=== PATIENT | male | born 1990 | race Caucasian/White ===

== ENCOUNTER 2016-10-29 22:15 | Emergency (ER) | payer OTHER, BC ==
[2016-10-29 22:19] VITALS: BP 143/80; PULSE 69; RESP 14; TEMP 97.9; O2SAT 93
[2016-10-29] MEDS ORDERED: HYDROCOD/APAP 5/325 PREPACK#6 BTL TAKEHOME ONE (22:48)
--- NOTE | 2016-10-29 22:48 | EDPHY ---
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 Non circumferential. Occurred shortly prior to arrival. No paresthesia or sensory or motor deficit. PHYSICAL EXAM (Prior to examination, patient consented to physical exam, hands were washed and my usual and customary physical exam procedures followed) 1) GENERAL: Well-developed, well-nourished, alert and oriented. Appears to be in no acute distress. 2) HEAD: Normocephalic 3) HEENT: Pupils equal, round, reactive to light bilaterally. 4) LUNGS: Breathing comfortably. 5) MUSCULOSKELETAL: Soft compartments. Normal coloration. 6) SKIN: On the volar aspect the patient's right wrist he has an area of superficial thickness burn with no blistering. Full sensation. Non circumferential. 7) VASCULAR: pulses and cap refill present are brisk 8) NEUROLOGIC: Radial, ulnar, median nerve function intact with no deficits appreciated on exam Procedure: Splint For comfort measure a volar Velcro splint was applied by ER military technician. After application of the splint I returned and re-examined the patient. The splint was adequately immobilizing the joint and distal to the splint the patient's circulation and sensation were intact. Patient shows no signs of compartment syndrome. Was given orthopedic precautions. The area is dressed with antibiotic ointment and sterile dressing Smoking Status: Never smoked Constitutional: Initial Vital Signs Temperature (C) 36.6 C 10/29/16 22:17 Heart Rate 69 10/29/16 22:17 Respiratory Rate 14 10/29/16 22:17 Blood Pressure 143/80 H 10/29/16 22:17 O2 Sat (%) 93 10/29/16 22:17 O2 Delivery Mode Room Air Allergies/Adverse Reactions: No Known Allergies Allergy (Unverified 08/25/14 21:27) Home Medications: Medication Instructions Recorded Hydrocodone/APAP 5/325 [Saxe 1 tab PO Q6 PRN #15 tab 01/15/17 5/325 (RX)] MDM/Departure - Depart Disposition: Home, Routine, Self-Care Clinical Impression: Burn of right wrist Qualifiers: Encounter type: initial encounter Burn degree: first degree Qualifier Code: ( T23.171A) Burn of first degree of right wrist, initial encounter Condition: Good Instructions: Superficial Burn (ED) Additional Instructions: Return to the ER if you develop redness, swelling, discharge, warmth to the wound, red streaks going up your arm , or any other symptoms that concern you. Stand Alone Forms: Work Comp Follow Up Prescriptions: Hydrocodone/APAP 5/325 [Saxe 5/325 (RX)] 1 tab PO Q6 PRN #15 tab PRN Reason: Pain, Severe Referrals: Follow-up, with your work comp provider in 2 days [Other] - As per Instructions
== END 2016-10-29 23:06 | disposition home or self-care (01) ==
PROC: 2W28X4Z Dressing of Right Upper Extremity using Bandage (ICD-10-PCS; principal; 2016-10-29)
DX: T23.171A Burn of first degree of right wrist, initial encounter (principal); T31.0 Burns involving less than 10% of body surface; X13.1XXA Other contact with steam and other hot vapors, initial encounter; Y92.69 Other specified industrial and construction area as the place of occurrence of the external cause; Y99.0 Civilian activity done for income or pay
CPT/HCPCS: L3908

== ENCOUNTER 2016-11-26 19:45 | Emergency (ER) | payer OTHER ==
[2016-11-26 20:01] VITALS: PULSE 58; RESP 16; TEMP 98.6
--- NOTE | 2016-11-26 20:43 | EDPHY ---
H & P Time Seen by Provider: 11/26/16 19:58 HPI/ROS: CHIEF COMPLAINT: Left index finger laceration HISTORY OF PRESENT ILLNESS: 25-year-old male presents with a laceration to his left index finger from a knife. Patient was at work slicing beef. Patient is [id number], he denies numbness or tingling in this finger, his tetanus is up-to-date. He denies other complaints. Smoking Status: Never smoked Physical Exam: GEN: Awake, alert, oriented, no acute distress RESP: nl resp effort MSK: Left index finger with full active flexion and extension at all joints, 2 point discrimination intact, cap refill less than 3 seconds SKIN: 1 cm laceration to lateral aspect of index finger, no tendon involvement Constitutional: Initial Vital Signs Temperature (C) 37.0 C 11/26/16 19:59 Heart Rate 58 L 11/26/16 19:59 Respiratory Rate 16 11/26/16 19:59 Blood Pressure 128/63 H 11/26/16 19:59 O2 Sat (%) 94 11/26/16 19:59 O2 Delivery Mode Room Air Allergies/Adverse Reactions: No Known Allergies Allergy (Unverified 11/26/16 19:58) Home Medications: Medication Instructions Recorded NK [No Known Home Meds] 11/26/16 MDM/Departure - MDM Procedures: Procedure: Laceration repair. Verbal consent was obtained from the patient. The 1 cm laceration on the left index finger was anesthetized using digital block 1% lidocaine without epinephrine. The wound was carefully irrigated by the emergency department network control technician. Next, the wound was prepped and draped in sterile fashion and explored to its base with a gloved finger. There were no deep structures involved. No tendon injury was identified. No vascular injury was identified. No foreign bodies were identified. The wound was repaired with 5.0 Prolene, 3 simple interrupted sutures. The wound repair was simple. The procedure was performed by myself. Tetanus and antibiotic status were addressed. - Depart Disposition: Home, Routine, Self-Care Clinical Impression: Laceration of left index finger Condition: Good Instructions: Finger Laceration (ED) Additional Instructions: Return to the emergency department in 12-14 days for suture removal, return sooner for any signs of infection. Stand Alone Forms: Work Comp Follow Up Referrals: Sophia Anderson NP [Primary Care Provider] - As per Instructions
[2016-11-26 21:12] VITALS: BP 122/60; O2SAT 98
== END 2016-11-26 21:12 | disposition home or self-care (01) ==
DX: S61.211A Laceration without foreign body of left index finger without damage to nail, initial encounter (principal); W26.0XXA Contact with knife, initial encounter; Y92.69 Other specified industrial and construction area as the place of occurrence of the external cause; Y93.89 Activity, other specified

== ENCOUNTER 2016-12-10 19:08 | Emergency (ER) | payer BC, OTHER ==
[2016-12-10 19:20] VITALS: TEMP 97; O2SAT 96
[2016-12-10] MEDS ORDERED: ONDANSETRON DISINTEGRATING 4 MG TAB ONE (19:47)
[2016-12-10] MEDS ORDERED: ONDANSETRON DISINTEGRATING 4 MG TAB PO ONE (19:53)
--- NOTE | 2016-12-10 20:02 | EDPHY ---
H & P Time Seen by Provider: 12/10/16 19:45 HPI/ROS: CHIEF COMPLAINT: Possible fever, chills, vomiting HISTORY OF PRESENT ILLNESS: Patient is a 26-year-old male who underwent left shoulder labrum repair on 12/07/[address] Perea. The patient states he took pain medicine. He woke from a nap. He felt significant nausea and had episode of emesis. He developed a headache. He states his headache is improving. He felt as though he had a "fever for a second." Patient states he felt chilled during episodes of his emesis but that has resolved. He has no neck stiffness. No abdominal pain. Patient has had no redness surrounding his surgical site. No increased pain at surgical site. REVIEW OF SYSTEMS: My complete review of systems is negative except as mentioned in the HPI. Past Medical/Surgical History: Left pupil injury, bilateral shoulder surgery Smoking Status: Never smoked Physical Exam: 36.1, 134/85, 71, 14, 96% on room air GENERAL: No acute distress, alert. HEENT: Eyes normal to inspection, normal pharynx, no signs of dehydration. NECK: No thyromegaly, no lymphadenopathy, supple. RESPIRATORY: Clear to auscultation bilaterally, no rales, rhonchi or wheezing. CVS: Regular rate and rhythm, no rubs, murmurs, or gallops. ABDOMEN: Soft, nontender, nondistended, no organomegaly. BACK: Normal to inspection, no CVA tenderness. SKIN: Normal color, no rash, warm, dry. No pallor. EXTREMITIES: The left shoulder appears to be healing well. There is no redness or discharge. No significant swelling. Neurovascular intact distally. Sling in place. NEURO/PSYCH: Alert and oriented x3, normal mood and affect, normal motor sensory exam. No obvious cranial nerve deficit. Constitutional: Initial Vital Signs Temperature (C) 36.1 C 12/10/16 19:15 Heart Rate 71 12/10/16 19:15 Respiratory Rate 14 12/10/16 19:15 Blood Pressure 134/85 H 12/10/16 19:15 O2 Sat (%) 96 12/10/16 19:15 O2 Delivery Mode Room Air Allergies/Adverse Reactions: No Known Allergies Allergy (Verified 12/10/16 19:19) Home Medications: Medication Instructions Recorded Ondansetron Odt [Zofran Odt 4 mg 4 mg PO Q4PRN PRN #7 tab 12/10/16 (*)] Oxycodone HCl/Acetaminophen 12/10/16 Medical Decision Making ED Course/Re-evaluation: I discussed possible etiologies with the patient. At this time I do not feel he needs blood test her shoulder imaging. He was given a Zofran for his reported nausea. Differential Diagnosis: My differential includes but is not limited to wound infection, cellulitis, abscess, bacteremia, sepsis, medication reaction, viral illness, small-bowel obstruction - Data Points Medications Given: Discontinued Medications Ondansetron HCl (Zofran Odt) 4 mg PO EDNOW ONE Stop: 12/10/16 19:54 Last Admin: 12/10/16 19:53 Dose: 4 mg Departure - Departure Disposition: Home, Routine, Self-Care Clinical Impression: Nausea & vomiting Qualifiers: Vomiting type: unspecified Vomiting Intractability: non-intractable Qualified Code(s): R11.2 - Nausea with vomiting, unspecified Condition: Good Instructions: Acute Nausea and Vomiting (ED) Additional Instructions: Return with increasing pain, redness, fever, chills or any other concerns. Referrals: Sophia Anderson NP [Primary Care Provider] - As per Instructions Elia Perea MD [Medical Doctor] - 1-2 days without fail Prescriptions: Ondansetron Odt [Zofran Odt 4 mg (*)] 4 mg PO Q4PRN PRN #7 tab PRN Reason: For Nausea & Vomiting
[2016-12-10] MEDS ORDERED: ONDANSETRON 4MG PREPACK#2 BTL TAKEHOME ONE (20:44)
[2016-12-10 20:53] VITALS: BP 132/70; PULSE 78; RESP 18
== END 2016-12-10 20:51 | disposition home or self-care (01) ==
DX: R11.2 Nausea with vomiting, unspecified (principal)